=== PATIENT | male | born 1965 | race Caucasian/White ===

== ENCOUNTER 2025-01-29 17:36 | Emergency (ER) | payer MEDICARE, SELFPAY ==
[2025-01-29 17:41] VITALS: BP 172/110; PULSE 117; TEMP 36.7; O2SAT 91; BMI 65.1
--- NOTE | 2025-01-29 17:54 | ED_ITS ---
HPI HPI - General Adult General Chief complaint: Wound/Laceration Stated complaint: SLICED MIDDLE FINGER RIGHT HAND WITH MANDALIN Time Seen by Provider: 01/29/25 17:47 Source: patient Mode of arrival: walk-in Limitations: no limitations History of Present Illness HPI narrative: Patient is a 59-year-old male that presents to the emergency department with complaints of laceration to his right third digit after cutting it on a mandolin while slicing tomatoes. He is not on any anticoagulation or antiplatelet medication. He is not up-to-date with his tetanus. Related Data Allergies Allergy/AdvReac Type Severity Reaction Status Date / Time No Known Drug Allergies Allergy Verified 01/29/25 17:41 Opioid HPI Opioid Management Most Recent Opioid Data: Last Pain Scale 6 Today, 17:41 Review of Systems ROS Status of ROS 10 or more systems reviewed and unremark able except as noted in history and below PFSH PFSH Social History Little interest or pleasure in doing things: not at all Feeling down, depressed, or hopeless: not at all Exam Narrative Exam Narrative: General: No distress, morbidly obese, age-appropriate Skin: Warm, dry, no pallor. No rash. Distal phalanx right third digit skin avulsion flap approximately 1.5 x 1 cm, venous oozing. Head: Normocephalic, atraumatic. Neck: Supple, non-tender. Eye: Pupils are equal, round and EOMI. No scleral icterus. Ears, Nose, Mouth, and Throat: No nasal mucosal hypertrophy. Oral mucosa is moist, no posterior oropharynx erythema, uvula is mid-line Cardiovascular: Regular Rate and Rhythm without murmur, gallop or rub. Respiratory: No accessory muscle use or respiratory distress. Back: No midline thoracic or lumbar vertebral tenderness. Musculoskeletal: Full ROM of all extremities, no calf or popliteal tenderness Neurological: A&O x4. No cranial nerve dysfunction observed. No truncal ataxia. Moves all extremities. Sensation intact. Psychiatric: Cooperative and interactive. Normal mood and affect. Constitutional Vital Signs, click to edit/add: Last Vital Signs Temp 98.0 F 01/29/25 17:41 Pulse 102 H 01/29/25 19:04 Resp 20 01/29/25 19:04 BP 142/105 H 01/29/25 19:04 Pulse Ox 95 01/29/25 19:04 O2 Del Method Room Air 01/29/25 19:04 Documenting provider has reviewed patient's vital signs: yes Course Vital Signs Vital signs: Vital Signs Temperature 98.0 F 01/29/25 17:41 Pulse Rate 117 H 01/29/25 17:41 Respiratory Rate 20 01/29/25 17:41 Blood Pressure 172/110 H 01/29/25 17:41 Pulse Oximetry 91 L 01/29/25 17:41 Temperature 98.0 F 01/29/25 17:41 Pulse Rate 102 H 01/29/25 19:04 Respiratory Rate 20 01/29/25 19:04 Blood Pressure 142/105 H 01/29/25 19:04 Pulse Oximetry 95 01/29/25 19:04 Oxygen Delivery Method Room Air 01/29/25 19:04 Medical Decision Making MDM Narrative Medical decision making narrative: 59-year-old male presented with a clean, uncomplicated linear laceration to the right third digit sustained from a mandolin while slicing tomatoes. On evaluation, there was a superficial skin flap approximately 1.5x 1cm with venous oozing, able to be reapproximated. There was no evidence of tendon injury, neurovascular compromise, or foreign body. The wound was thoroughly irrigated and explored, and no signs of contamination were noted; therefore, antibiotics were not indicated. Given he was not up to date on tetanus immunization, a tetanus booster was administered in the ED. The laceration was repaired with 5 simple interrupted sutures, and the patient was given wound care instructions with return precautions for infection or dehiscence. He was advised to have sutures removed in 5 days with his PCP. Nonstick dressing placed over wound, pain and bleeding controlled, patient discharged with plan for close follow-up with PCP for suture removal. Differential Diagnosis Differential Diagnosis: Laceration Discharge Plan Discharge Chief Complaint: Wound/Laceration Clinical Impression: Finger laceration Patient Disposition: Home, Self-Care Time of Disposition Decision: 18:39 Condition: Good Mode of Transportation: Private Vehicle Print Language: Vietnamese Instructions: Finger Laceration (ED) Additional Instructions: Do not submerge wound in water until sutures out and completely healed. Keep dry for 24 hours. After that gently cleanse with soap and water and pat dry. Change dressing daily or as needed, monitor for signs and symptoms of infection including fever, redness, warmth, increased pain, foul-smelling thick cole/brownish drainage and return to the ER or consult your primary care physician if the symptoms occur. Have sutures removed in 5 days. Referrals: ADELA HARTMAN [Primary Care Provider, Family Practice] - 1 week Referral Note: For suture removal in 5 days. Discharge Date/Time: 01/29/25 19:07 Procedures ED Laceration Laceration Laceration 1: Site: hand Side (if applicable): right Size (cm): 1.5 Description: flap Depth: simple, single layer Anesthetic used: lidocaine 1% Anesthesia technique: nerve block (Right third digital block) Amount (ml): 4 Pre-repair: wound explored, irrigated extensively and deep structures intact Skin layer closed with: other (Ethilon) Size (cm): 5-0 Number of sutures: 5 Technique: simple, interrupted
--- OUTSIDE RECORDS SUMMARY | 2025-01-29 18:43 | XMS_ITS | Clinical Summary ---
Author Organization [facility] Address [address] [place] [address] Phone Care Team Providers Care Pet Caretaker Name Role Phone Unavailable Primary Care Provider Unavailabl e Social History Tobacco UseTypesPacks/DayYears UsedDateSmoking Tobacco: Never AssessedSex and Gender InformationValueDate RecordedSex Assigned at BirthNot on fileLegal Sex Male09/03/2022 10:17 AM EDTGender IdentityNot on fileSexual OrientationNot on file Plan of Treatment Health MaintenanceDue DateLast DoneCommentsCT Hbyxryohunjb53/20/1967Colonoscopy 1966Colorectal Cancer Uhjucdqsc98/20/1967FIT-DNA (Cologuard)1966FIT 1966HIV Euspoaeie11/20/1967Lipid Panel1966 7918Tgiasteiidiew63/20/1967 Yearly Adult Hkwzypiu35/20/1967MMR Vaccines (1 of 1 - Standard series)12/11/1967 Hepatitis C Durpmqmkp60/20/1985Hepatitis B Vaccines (1 of 3 - 19+ 3-dose series) 1985DTaP/Tdap/Td Vaccines (1 - Tdap)1988PSA Prostate Cancer Qldsugxdw15/20/2017Pneumococcal Vaccine (1 of 1 - PCV)2016Zoster Vaccines (1 of 2)2016Influenza Vaccine (#1)5COVID-19 Vaccine ( - season)2024HIB VaccinesAged OutNo longer eligible based on patient's age to complete this topicHPV VaccinesAged OutNo longer eligible based on patient's age to complete this topicHepatitis A VaccinesAged OutNo longer eligible based on patient's age to complete this topicIPV VaccinesAged OutNo longer eligible based on patient's age to complete this topicMeningococcal VaccineAged OutNo longer eligible based on patient's age to complete this topicRotavirus Vaccines Aged OutNo longer eligible based on patient's age to complete this topic
[2025-01-29] MEDS: DIPHTH,PERTUSS(ACELL),TET VAC 0.5 ML SYRINGE IM (18:52)
[2025-01-29] MEDS: LIDOCAINE HCL 1% 100 MG/10 ML MDV INJ (18:53)
[2025-01-29 19:04] VITALS: BP 142/105; PULSE 102; O2SAT 95
== END 2025-01-29 19:07 | disposition home or self-care (01) ==
PROVIDERS: Emergency Provider Emergency Medicine; PCP Family Medicine
DX: S61.212A Laceration without foreign body of right middle finger without damage to nail, initial encounter (principal); W26.8XXA Contact with other sharp object(s), not elsewhere classified, initial encounter
CPT/HCPCS: 12001; 90471; 90715; 99283; 99284